=== PATIENT | female | born 1980 | race Caucasian/White ===

== ENCOUNTER 2018-12-24 23:39 | Emergency (ER) | payer OTHER ==
[2018-12-25] MEDS: LIDOCAINE 1% (MDV) 20 ML INJ SC (01:43)
[2018-12-25] MEDS: IBUPROFEN 200 MG TAB PO (03:24)
== END 2018-12-25 03:32 | disposition home or self-care (01) ==
LOC: FTE 23:39
DX: S81.011A Laceration without foreign body, right knee, initial encounter (principal); X99.0XXA Assault by sharp glass, initial encounter
CPT/HCPCS: 12002; 99282-25